=== PATIENT | female | born 1965 | race Caucasian/White ===

== ENCOUNTER → 2023-08-05 07:26 | Outpatient (REF) | payer OTHER, SELFPAY | LOC: HWRAD 07:26 | PROVIDERS: ATTENDING PHYSICIAN Physician Assistant Medical | DX: Z00.00 Encounter for general adult medical examination without abnormal findings (principal); Z78.0 Asymptomatic menopausal state | CPT/HCPCS: 77080 ==

== ENCOUNTER → 2024-10-01 15:29 | Outpatient (REF) | payer OTHER, SELFPAY | LOC: MRI 3T 15:29 | PROVIDERS: ATTENDING PHYSICIAN Physician Assistant; FAMILY PHYSICIAN Physician Assistant Medical | DX: S43.402A Unspecified sprain of left shoulder joint, initial encounter (principal) | CPT/HCPCS: 73221 ==

== ENCOUNTER → 2024-10-09 07:22 | Outpatient (REF) | payer OTHER, SELFPAY | LOC: WDC 07:22 | PROVIDERS: ATTENDING PHYSICIAN Physician Assistant Medical | DX: Z12.31 Encounter for screening mammogram for malignant neoplasm of breast (principal) | CPT/HCPCS: 77063; 77067 ==